=== PATIENT | female | born 1990 ===

== ENCOUNTER 2016-06-07 19:30 | Inpatient (IN) | payer OTHER ==
[2016-06-07] MEDS ORDERED: LIDOCAINE Viscous 2% 15 ML UDCUP ONE (19:58)
[2016-06-07] MEDS ORDERED: LACTATED RINGERS 1,000 ML ONE (19:58)
[2016-06-07] MEDS ORDERED: PUMP TUBING ONE (19:58)
[2016-06-07] MEDS ORDERED: OXYTOCIN 10 UNITS/ML VIAL ONE (19:58)
[2016-06-07] MEDS ORDERED: MINERAL OIL 25 ML BOT ONE (19:58)
[2016-06-07] MEDS ORDERED: IV START KIT ONE (19:58)
[2016-06-07] MEDS ORDERED: LIDOCAINE 1% (PRES FREE) 30 ML VIAL ONE (19:58)
[2016-06-07] MEDS ORDERED: OXYTOCIN IN LR 500 ML IV ONE ×2 (19:59→21:54)
[2016-06-07] MEDS ORDERED: MISOPROSTOL 200 MCG TABLET ONE (20:32)
[2016-06-07] MEDS ORDERED: SODIUM CHLORIDE 0.9% FLUSH 10 ML ONE (20:34)
[2016-06-07] MEDS: LACTATED RINGERS 1,000 ML IV PRN ×2 (20:40→22:30)
[2016-06-07] MEDS ORDERED: FENTANYL 100 MCG/2 ML VIAL ONE (20:56)
[2016-06-07 21:11] VITALS: BMI 34.7
[2016-06-07] MEDS ORDERED: OXYTOCIN 10 UNITS/ML VIAL IM ONE (21:54)
[2016-06-07] MEDS ORDERED: LACTATED RINGERS 1,000 ML IV PRN (21:54)
[2016-06-07] MEDS ORDERED: MISOPROSTOL 25 MCG TABLET SL ONE (21:56)
[2016-06-07] MEDS ORDERED: FENTANYL 100 MCG/2 ML VIAL IM PRN (21:57)
[2016-06-07] MEDS ORDERED: CALCIUM CARBONATE 500 MG TAB.CHEW PO PRN (22:09)
[2016-06-07] MEDS ORDERED: BENZOCAINE/MENTHOL 60 APPLIC/BOT TP PRN (22:09)
[2016-06-07] MEDS ORDERED: LANOLIN 50 APPLIC/7G TUBE TP PRN (22:09)
[2016-06-07] MEDS ORDERED: MAGNESIUM HYDROXIDE 30 ML UDCUP PO PRN (22:09)
[2016-06-07] MEDS ORDERED: ACETAMINOPHEN 325 MG TABLET PO PRN (22:09)
--- NOTE | 2016-06-07 22:55 | PCMAN ---
OB Admission Note - History : 2 Term: 1 : 0 Abortions (S&E): 0 Livin Gestational Age (weeks): 38 Days (#/7): 6 Admit Cervical Dilation:: 8-9 Admit Cervical Effacement (%):: 90 Admit Station:: 0 Admit Presentaton:: Cephalic Membrane Status: Intact Rupture (Date): 06/07/16 Rupture (Time): 20:20 Membranes Comment:: scant clear Labor Onset (Date): 06/07/16 Labor Onset (Time): 18:00 Contractions: Yes Contraction Frequency:: 2 Heart Rate:: 140 (mod varibility, pos accels, no decels) Summary of Course:: HPI: Shelli was having mild cramping at the office this afternoon and had SVE of 4/90%/-2 at that time. She went home, and noted that her contractions increased at 1800. She presented to [facility] and was admitted with spontaneous onset of contractions in active labor with SVE of 8.5/90/0 at 1945. Course: Shelli transferred care for delivery from [facility] at 37w5d. Dates by 8wUS. She initiated care at 12 w x 7 visits with [facility] and 2 visits with [facility] midwives. At [facility] she participated in [facility]. She declined genetic testing. Anatomy scan at 17 weeks was incomplete. What was seen was WNL, but not follow up scan was completed. BMI at delivery 34. TWG unknown. Her was complicated by anemia for which she was taking iron and a 7 week gap in care related to scheduling and miscommunication. At 35-36 weeks an affirm was done at [facility] and resulted pos for BV and yeast. Rx was given for this at the [facility] visit at 37w5d. The medications were never taken. 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 - Physical Exam Psych/Mental Status: Mood/Affect Appropriate, Judgment/Insight Intact Neurological: Grossly Intact, Alert, Oriented x 4 HEENT: Atraumatic Lungs: Clear to Auscultation Bilaterally, Normal Air Movement Cardiovascular: Regular Rate and Rhythm, Normal S1, Normal S2 Abdomen: Normal Bowel Sounds Genitourinary: Normal Female Genitalia Rectal Exam: Deferred Extremities: Full ROM, Normal Pulses Skin: Normal Color - Problems (1) Spontaneous vaginal delivery Status: Acute Code: [id number]/Plan: A: Undelivered IUP at 38w6d Active Labor, feeling pushy GBS neg Not ruptured Anemia Fetus Cat 1 P: Admit to [facility] EFM per unit protocol Anticipate Delivery
[2016-06-07] MEDS ORDERED: CEFAZOLIN SODIUM 2 GRAM PREMIX 2 G in Premix (D5W) 100 ml 1 EACH IV ONE (23:00)
[2016-06-07] MEDS ORDERED: CEFAZOLIN SODIUM 2 GRAM DUPLEX 2 G in Premix (D5W) 50 ml 1 EACH IV ONE (23:08)
[2016-06-07] MEDS: IBUPROFEN 800 MG TABLET PO PRN (23:13)
[2016-06-07] MEDS ORDERED: MISOPROSTOL 200 MCG TABLET PO ONE (23:14)
[2016-06-07] MEDS ORDERED: CEFAZOLIN SODIUM 2 GRAM DUPLEX 50 ML IV ONE (23:14)
--- NOTE | 2016-06-07 23:35 | PCMDEL ---
Delivery Note - Labor 1st stage (hr/min):: [id number] 2nd stage (hr/min):: 1 min 3rd stage (hr/min):: 5min Total (hr/min):: 2hr 25 min Pushed (hr/min):: 1 min - Delivery Delivery (Date): 06/07/16 Delivery (Time): 20:25 Gender: Female Presentation: Cephalic Position: OA Delayed Cord Clamping:: > 3 min 1 Minute Total: 9 5 Minute Total: 9 Placenta:: shultze, grossly intact EBL:: 1100 Perineum:: 2nd degree perineal laceration, repaired with good approximation and hemostasis Suture:: 3-0 chromic Anesthesia/Meds:: none for delivery, gel & injectable lidocaine for repair, fentanyl for PERRY Length ROM:: 5 min Comments:: First Stage: Shelli labored at home and arrived to L&D with SOOC and SVE 8.5/90/0. She was admitted and progressed rapidly to an anterior lip. After SROM of clear fluid, she felt a strong urge to push. FHTs cat 1 throughout first stage. GBS neg. Second Stage: Shelli pushed in semi fowlers and crownder after two contractions. Controlled delivery of the head with next contraction, no nuchal cord. OA. Infant did not restitute and with next push shoulders did not emerge. With suprapubic pressure and dickson's, it was noted that the anterior shoulder was not entrapped behind the pubic bone. With the next effort, the body birthed without restituting and a compound hand came with the infant's left shoulder. Vigouros female, Apgars 9& 9 delivered to maternal abdomen. Third Stage: At 3 minutes gush of blood noting spontaneous placental separation was noted. Cord clamped x2 and cut by the father, Cydney. Cord blood obtained. With gentle traction,& Graham Lamont maneuver, grossly intact placenta delivered in Shultze position, membranes teased out with ring forceps. Fundus was midline, boggy and giving small gushes with continued massage. 10 units IM Pitocin administered. Bleeding continued with massage, 600mcg miso was given buccal and IV access was initiated. Bleeding was not slowing so lower uterine sweep was performed and removed 200mL clots. After this fundus was firm and midline. IV pitocin initiated. Straight cath for 100ml light yellow urine. QBL 1100mL Vaginal vault and perineum inspected and revealed 2nd degree perineal laceration. Lidocaine gel was applied and injectable lidocaine was used to numb the area of the repair. Afterplacing first stitch another gush of blood was noted. Fundal massage expressed more clots. 100mcg fentanyl given and another Sweep removed 200mL more clots. After this final removal, the uterus remained firm, and bleeding remained WNL. 2nd degree repair completed with good approximation and hemostasis. Rectal exam WNL. 2g ancef ordered. remained skin to skin the entire time, was initiated successfully within first 90 minutes after the . Infant weight 7lbs 8oz. and mother stable and bonding well. Post delivery count correct.
[2016-06-08 06:09] LABS: HEMATOCRIT 22.5 % (37.0-47.0); HEMOGLOBIN 7.3 gm/l (12.0-16.0)
[2016-06-08] MEDS: IBUPROFEN 800 MG TABLET PO PRN ×2 (08:03→15:49)
[2016-06-08] MEDS: DOCUSATE SODIUM 100 MG CAPSULE PO SCH (08:03)
--- NOTE | 2016-06-08 10:42 | PDOC44 ---
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 Gave some formula this morning, worried that her milk hasn' t come in yet. Denies SETHI, dizziness, fainting, heart palpitations. Reports Flatus, Reports Pain Tolerable, Reports , Reports Lochia Moderate, Reports Tolerating Regular Diet - Objective Temp Pulse Resp BP Pulse Ox 98.1 F 74 16 100/48 06/08/16 07:58 06/08/16 07:58 06/08/16 07:58 06/08/16 07:58 Lab Results 06/08/16 05:30 Hgb 7.3 L Hct 22.5 L Current Medications Generic Name Dose Route Start Last Admin Trade Name Freq PRN Reason Stop Dose Admin Acetaminophen 325 - 650 mg 06/07/16 22:09 06/07/16 23:13 Tylenol PO 650 mg Q4H PRN Administration Pain (Mild) Benzocaine/Menthol 1 applic 06/07/16 22:09 Dermoplast TP PRN PRN Patient Comfort Calcium Carbonate/Glycine 500 - 1,000 mg 06/07/16 22:09 Tums PO BID PRN Indigestion Docusate Sodium 100 mg 06/08/16 09:00 06/08/16 08:03 Colace PO 100 mg DAILY STACEY Administration Emollient Ointment 1 applic 06/07/16 22:09 06/07/16 23:26 [id number] TP 1 tube PRN PRN Administration sore nipples Lactated Ringer's 1,000 mls @ 100 mls/hr 06/07/16 22:09 06/07/16 22:30 Lactated Ringers IV 100 mls/hr .Q10H PRN Administration Titrate per clinical situation Ibuprofen 800 mg 06/07/16 22:09 06/08/16 08:03 Motrin PO 800 mg Q6H PRN Administration Pain (Mild) Magnesium Hydroxide 30 ml 06/07/16 22:09 Milk Of Magnesia PO BEDTIME PRN Constipation Sodium Chloride 10 ml 06/07/16 22:09 Normal Saline 10ml Flush IV PRN PRN IV Flush Sodium Chloride 10 ml 06/08/16 09:00 Normal Saline 10ml Flush IV Q8HR STACEY - Physical Exam General: Afebrile Psych/Mental Status: Mood/Affect Appropriate, Judgment/Insight Intact, Bonding Well Lungs: Clear to Auscultation Bilaterally Cardiovascular: Regular Rate and Rhythm Breast: Soft, Skin intact, Nipples Intact Fundus: Firm, Midline, Below Umbilicus Genitourinary: Normal Female Genitalia (Sutures intact and edges well- approximated) Lochia: Moderate Skin: Other (Mild pallor) - Problems:Assessment/Plan (1) Anemia Qualifiers: Other causes of anemia: acute posthemorrhagic Status: AcuteAssessment/ Plan: A: S/p hemorrhage Asymptomatic besides mild pallor VSS P: CBC ordered for 24hrs [id number] drops much lower than current levels and/or if pt develops symptoms, may need to consider IV iron transfusion or blood transfusion (PRN) Encouraged rest and hydration Explained more about her hemorrhage and potential effects of this. (2) care and examination of lactating mother Status: AcuteAssessment/Plan: A: 25yo 14hrs s/p hemorrhage Lochia stable & formula feeding P: Discussed normal transition of colostrum to full milk supply and what baby's needs are in the 1st 24hrs of life. Probable discharge home tomorrow depending on her anemia Disposition: Stable, Anticipate DC Home Tomorrow (Pending stability of anemia)
[2016-06-08 20:46] LABS: HEMATOCRIT 23.5 % (37.0-47.0); HEMOGLOBIN 7.2 gm/l (12.0-16.0)
[2016-06-09] MEDS: IBUPROFEN 800 MG TABLET PO PRN (05:51)
[2016-06-09 08:58] VITALS: BP 103/51
[2016-06-09] MEDS: DOCUSATE SODIUM 100 MG CAPSULE PO SCH (10:39)
--- NOTE | 2016-06-09 10:45 | PDOC39B ---
Hospital Course: ADMIT DATE: 06/07/16 DISCHARGE DATE: 06/09/16 ADMISSION DIAGNOSES: Active Labor PROCEDURES: HISTORY OF PRESENT ILLNESS: 25 year old G2 T1 L1 at 38 weeks 6 days presenting with active labor. HOSPITAL COURSE: The patient is ready to go home today. She was just seen by the nurse. Shelli is struggling with latch and has been feeding the baby formula mostly. was able to show the patient how latch baby well and not just on the nipple. With the help of an sign language interpreter, Shelli reports light lochia and mild cramping. Ibuprofen works well. Rx to go home with. She denies any dizziness or lightheadedness with ambulating. Rx for iron BID when at home. Eating, drinking and voiding. Will f/u with [facility] for PP. By day of discharge the patient is stable, and bottlefeeding, and ready to go home. - Physical Exam Vital Signs: Temp Pulse Resp BP Pulse Ox 98.0 F 83 18 103/51 06/09/16 08:54 06/09/16 08:54 06/09/16 08:54 06/09/16 08:54 General: Afebrile Psych/Mental Status: Mood/Affect Appropriate Neurological: Alert Cardiovascular: Regular Rate and Rhythm Breast: Soft Fundus: Firm Abdomen: Normal Bowel Sounds Genitourinary: Normal Female Genitalia Lochia: Light Rectal Exam: Deferred Extremities: Full ROM Skin: Normal Color, Warm, Dry Wound: Well Approximated - Discharge Diagnosis (1) Normal course Status: AcuteAssessment/Plan: A/ Day 2 s/p vaginal Breast and bottle feeding P/ F/U with Johanny Angeles in 2 weeks Rx for Iburpofen, Colace and Iron F/U with next week - Discharge Plan Condition: Good Disposition: Home Additional Instructions: Midwifery 'After the ' handout given to patient. Prescriptions: Docusate Sodium [COLACE 100 MG CAPSULE (SHF)] 100 mg PO DAILY PRN #30 cap PRN Reason: Constipation Ibuprofen [Motrin] 800 mg PO Q8H PRN #120 tablet PRN Reason: Pain FERROUS SULFATE (65 Fe) [IRON FERROUS SULFATE 325 MG TABLET (SHF)] 325 mg PO BID #60 tab Follow-Up: Nya Angeles CNM [Referring] - In 2 weeks
== END 2016-06-09 11:43 | disposition home or self-care (01) | DRG 775 ==
LOC: FBC 19:30 → FBCOUT 19:30 → FBC 19:58
PROVIDERS: ADMIT Advanced Practice Midwife; ATTEND Registered Nurse
PROC: 10E0XZZ Delivery of Products of Conception, External Approach (ICD-10-PCS; principal; 2016-06-07)
PROC: 0KQM0ZZ Repair Perineum Muscle, Open Approach (ICD-10-PCS; 2016-06-07)
DX: O70.1 Second degree perineal laceration during delivery (principal); Z37.0 Single live birth; O99.02 Anemia complicating childbirth; D64.9 Anemia, unspecified; Z3A.38 38 weeks gestation of pregnancy